=== PATIENT | female | born 1985 | race Caucasian/White ===

== ENCOUNTER 2018-08-12 16:17 | Day surgery (SDC) | payer OTHER ==
[2018-08-12 17:18] LABS: ADD MAN DIFF? NO
[2018-08-12 17:24] LABS: WHITE BLOOD COUNT 9.4 10^3/ul (4.8-10.8)
[2018-08-12 17:24] LABS: BASOPHILS % 0.3 % (0.0-2.0); EOSINOPHILS # 0.1 10^3/ul (0.0-0.5); EOSINOPHILS % 0.9 % (0.0-7.0); HEMATOCRIT 36.4 % (37.0-47.0); HEMOGLOBIN 11.9 g/dl (12.0-16.0); LYMPHOCYTES % 31.5 % (15.0-51.0); MEAN CORPUSCULAR HEMOGLOBIN 27.8 pg (29.0-33.0); MEAN CORPUSCULAR HGB CONC 32.7 g/dl (32.0-37.0); MEAN PLATELET VOLUME 11.4 fl (7.4-10.4); MONOCYTE # 0.6 10^3/ul (0.3-0.9); NEUTROPHIL # 5.7 10^3/ul (1.6-7.5); NEUTROPHILS % 60.8 % (39.0-77.0); PLATELET COUNT 199 10^3/UL (140-415); RED BLOOD COUNT 4.28 10^6/ul (4.20-5.40); RED CELL DISTRIBUTION WIDTH 12.9 % (11.5-14.5)
[2018-08-12 17:36] LABS: ADD UMIC YES; UR ASCORBIC ACID NEGATIVE (NEGATIVE); UR BACTERIA FEW /HPF (NONE SEEN); UR BILIRUBIN (Dip) NEGATIVE (NEGATIVE); UR BLOOD (Dip) 1+ mg/dL (NEGATIVE); UR CLARITY TURBID (CLEAR); UR COLOR AMBER (YELLOW); UR GLUCOSE (Dip) NEGATIVE (NEGATIVE); UR KETONES (Dip) TRACE mg/dL (NEGATIVE); UR LEUKOCYTE ESTERASE (Dip) 3+ Leu/ul (NEGATIVE); UR MUCUS MODERATE /HPF (NONE SEEN); UR NITRITE (Dip) NEGATIVE (NEGATIVE); UR RBC 6 /HPF (0-5); UR SPECIFIC GRAVITY (Dip) 1.032 (1.003-1.030); UR SQUAMOUS EPITHELIAL CELL MANY /HPF (FEW); UR TOTAL PROTEIN (Dip) 1+ mg/dl (NEGATIVE); UR UROBILINOGEN (Dip) NEGATIVE (NEGATIVE); UR WBC > 182 /HPF (0-5)
[2018-08-12 18:01] LABS: INR 0.95; PROTIME 12.8 Sec (11.9-14.9)
[2018-08-12 18:02] LABS: PARTIAL THROMBOPLASTIN TIME 30.9 Sec (23.0-35.0)
[2018-08-12] MEDS ORDERED: DIPHENHYDRAMINE 50 MG INJ IV (19:00)
[2018-08-12] MEDS ORDERED: OXYCODONE/ACETAMINOPHEN (5/325) TAB PO (19:00)
[2018-08-12] MEDS ORDERED: PROCHLORPERAZINE 10 MG INJ IV (19:00)
[2018-08-12] MEDS ORDERED: FENTAnyl 50 MCG/ML VIAL IV (19:00)
[2018-08-12] MEDS ORDERED: ONDANSETRON 4 MG INJ IV (19:00)
[2018-08-12] MEDS ORDERED: HYDROmorphONE 1 MG/5 ML IV SYRINGE IV ×3 (19:00)
[2018-08-12] MEDS ORDERED: MEPERIDINE 25 MG INJ IV (19:00)
[2018-08-12] MEDS ORDERED: FENTAnyl 50 MCG/ML VIAL (19:28)
[2018-08-12] MEDS ORDERED: MIDAZOLAM 1 MG/ML 2 ML INJ (19:28)
[2018-08-12] MEDS ORDERED: LIDOCAINE 2% (SDV) 5 ML INJ (19:28)
[2018-08-12] MEDS ORDERED: PROPOFOL 20 ML (19:28)
[2018-08-12] MEDS ORDERED: CEFAZOLIN 1 GM INJ (19:36)
[2018-08-12] MEDS ORDERED: DEXAMETHASONE 4 MG/ML 5 ML INJ (19:41)
[2018-08-12] MEDS ORDERED: ONDANSETRON 4 MG INJ (19:41)
[2018-08-12] MEDS ORDERED: FAMOTIDINE 20 MG INJ (19:42)
[2018-08-12] MEDS ORDERED: EPHEDrine 25 MG/5 ML SYG (19:51)
[2018-08-12] MEDS ORDERED: OXYTOCIN 10 UNIT INJ (19:58)
[2018-08-12] MEDS ORDERED: KETOROLAC 30 MG INJ IV (20:30)
== END 2018-08-12 21:20 | disposition home or self-care (01) ==
LOC: SDS 16:17
DX: O02.1 Missed abortion (principal); Z3A.12 12 weeks gestation of pregnancy
CPT/HCPCS: 59820; 81001; 85025; 85610; 85730; 86900; 86901; 88305